=== PATIENT | female | born 1940 | race Caucasian/White ===

== ENCOUNTER → 2017-08-23 18:50 | Outpatient (CLI) | payer MEDICARE, OTHER ==
[2014-04-16 23:01] VITALS: BMI 25.9
[~2017-08-23 18:50] MED LIST: ACETAMINOPHEN500 M1 PO; BENADRYL INJ50 MG/ML IV; BENADRYL25 MG PO; CEPACOL SORE T1 EAC3 MM; CHLORASEPTIC177 ML MM; COLACE100 MG PO; COUMADIN5 MG PO; CYCLOBENZAPRINE10 MG PO; CYTOTEC200 MCG PO; DEMEROL50 MG PO; DULCOLAX10 MG/SUPP RC; HYDROCODONE-APA1 TAB PO; MIRALAX17 GM PO; NARCAN0.4 MG/ML IV; NUCYNTA50 MG PO; ONDANSETRON4 MG/2 M3 IV; PHENERGAN25 M1 PO; PRAVACHOL40 MG PO; PREMARIN0.625 MG PO; SENOKOT-S TABLE1 TAB PO; SYNTHROID100 MCG PO; VOLTAREN75 MG PO; ZESTORETIC 20-1 EACH PO; ZOFRAN4 MG PO
== END | disposition home or self-care (01) ==
LOC: D.MAMMO 16:00
DX: Z12.31 Encounter for screening mammogram for malignant neoplasm of breast (principal)